=== PATIENT | male | born 1970 | race Two or more races ===

== ENCOUNTER 2020-12-28 14:14 | Emergency (ER) | payer OTHER ==
[2020-12-28 14:29] VITALS: BP 169/78; PULSE 80; TEMP 98; BMI 31.1
[2020-12-28] MEDS ORDERED: OXYMETAZOLINE 0.05% NASAL SOLUTION 15 ML BOTTLE NS ONE (14:43)
== END 2020-12-28 15:46 | disposition home or self-care (01) ==
LOC: JERFT 14:14
DX: R04.0 Epistaxis (principal)
CPT/HCPCS: 99283-25

== ENCOUNTER 2022-10-01 20:37 | Emergency (ER) | payer OTHER ==
[2022-10-01 20:42] VITALS: BP 160/89; PULSE 82; RESP 18; TEMP 98.2; BMI 29.2
[2022-10-01] MEDS ORDERED: LIDOCAINE HCL 2% JELLY 10 ML CARTRIDGE UR ONE (21:34)
[2022-10-01] MEDS ORDERED: LIDOCAINE HCL 2% JELLY 10 ML CARTRIDGE ONE (21:39)
== END 2022-10-01 22:25 | disposition home or self-care (01) ==
LOC: JER 20:37
DX: N48.1 Balanitis (principal); N47.1 Phimosis
CPT/HCPCS: 99282-25